=== PATIENT | female | born 1965 | race Hispanic/Latino ===

== ENCOUNTER 2020-10-30 11:49 | Emergency (ER) | payer OTHER ==
[~2020-10-30] VITALS: Ht 157.5 cm; Wt 53.7 kg
[2020-10-30] MEDS ORDERED: MELO15TA28 PO (12:08)
[2020-10-30] MEDS ORDERED: AMBI10TA PO (12:08)
[2020-10-30] MEDS ORDERED: albuterol hfa (12:08)
[2020-10-30] MEDS ORDERED: CYCL-707 PO ×2 (12:08→13:08)
[2020-10-30] MEDS ORDERED: LIDOCAINE 1% MDV 20ML VIAL SC ONE (12:30)
[2020-10-30] MEDS ORDERED: LIDOCAINE 5% (LIDODERM) PATCH TD ONE (12:45)
[2020-10-30 13:03] VITALS: BP 154/98
[2020-10-30] MEDS ORDERED: LIDO5DIS41 TOP (13:08)
[2020-10-30] MEDS ORDERED: **NOTE PATIENT COMMENT** MISC XX SCH (21:00)
== END 2020-10-30 13:12 | disposition home or self-care (01) ==
LOC: M ED 11:49
DX: M54.2 Cervicalgia (principal); B20 Human immunodeficiency virus [HIV] disease; M19.90 Unspecified osteoarthritis, unspecified site; F41.9 Anxiety disorder, unspecified; F12.10 Cannabis abuse, uncomplicated; Z88.1 Allergy status to other antibiotic agents